=== PATIENT | male | born 1990 | race Caucasian/White ===

== ENCOUNTER 2016-07-02 22:46 | Emergency (ER) | payer OTHER ==
--- NOTE | 2016-07-02 23:39 | ED CLINICAL REPORT ---
Clinical Report - Physicians/Mid Levels [facility] [address] [place] [address] 07/02/2016 22:47 Patient: JIM DE LA GARZA Time Seen: 22:51. Arrived- By private vehicle. Historian- patient. HISTORY OF PRESENT ILLNESS Chief Complaint: DIZZINESS. Described as feeling off balance and light-headed. This started today and is now gone. No nausea, vomiting or tinnitus. REVIEW OF SYSTEMS No chills, fever, sweats, calf pain or chest pain. No cough, difficulty breathing, pedal edema, palpitations or abdominal pain. No constipation, diarrhea, nausea, vomiting or urinary problems. All systems otherwise negative, except as recorded above. PAST HISTORY Problems: Hypertension. Atrial Fibrillation. Additional Surgeries: Appendectomy. Sinus Surgery. Tonsillectomy. Medications: Fish Oil Oral. Losartan Potassium Oral. Allergies: Penicillin. SOCIAL HISTORY Never smoker. Regular alcohol use. No drug use. FAMILY HISTORY Denies family medical history. ADDITIONAL NOTES The nursing notes have been reviewed. PHYSICAL EXAM Vital Signs: 07/02/2016 22:57 BP: 161/95. HR: 90. RR: 12. O2 saturation: 100%. Temp: 98.7 F. Pain level now: 0/10. Have been reviewed. Appearance: Alert. Eyes: Pupils equal, round and reactive to light. No nystagmus. ENT: Normal ENT inspection. TM's normal. Moist mucous membranes. Pharynx normal. Neck: Normal inspection. Neck supple. No carotid bruit. CVS: Normal heart rate and rhythm. Heart sounds normal. Respiratory: No respiratory distress. Breath sounds normal. Abdomen: Soft and nontender. No organomegaly. Back: Normal inspection. Skin: Skin warm and dry. Normal skin color. Normal skin turgor. Extremities: Extremities exhibit normal ROM. Neuro: Alert. Mood/affect normal. Speech normal. Cranial nerves normal (as tested). No cerebellar findings. No motor deficit. No sensory deficit. LABS, X-RAYS, AND EKG EKG: No acute process. Rate: 83. Non-specific ST segment / T wave abnormalities. Prior EKG unavailable. The study has been independently viewed by me. PROGRESS AND PROCEDURES Course of Care: Patient is stable. Patient/family counseled. Old medical records ordered. Old records unavailable. Disposition: Discharged. Condition: stable. CLINICAL IMPRESSION Dizziness INSTRUCTIONS Drink plenty of fluids. Warnings: Further evaluation is necessary. GENERAL WARNINGS: Return or contact your physician immediately if your condition worsens or changes unexpectedly, if not improving as expected, or if other problems arise. Follow-up: Follow up with your doctor in seven days. Call for the next available appointment. Understanding of the discharge instructions verbalized by patient and parent. (Electronically signed by Jules Thayer MD 07/03/2016 0:15)
--- NOTE | 2016-07-02 23:39 | ED CLINICAL REPORT ---
Clinical Report - Physicians/Mid Levels [facility] [address] [place] [address] 07/02/2016 22:47 Patient: JIM DE LA GARZA Time Seen: 22:51. Arrived- By private vehicle. Historian- patient. HISTORY OF PRESENT ILLNESS Chief Complaint: DIZZINESS. Described as feeling off balance and light-headed. This started today and is now gone. No nausea, vomiting or tinnitus. REVIEW OF SYSTEMS No chills, fever, sweats, calf pain or chest pain. No cough, difficulty breathing, pedal edema, palpitations or abdominal pain. No constipation, diarrhea, nausea, vomiting or urinary problems. All systems otherwise negative, except as recorded above. PAST HISTORY Problems: Hypertension. Atrial Fibrillation. Additional Surgeries: Appendectomy. Sinus Surgery. Tonsillectomy. Medications: Fish Oil Oral. Losartan Potassium Oral. Allergies: Penicillin. SOCIAL HISTORY Never smoker. Regular alcohol use. No drug use. FAMILY HISTORY Denies family medical history. ADDITIONAL NOTES The nursing notes have been reviewed. PHYSICAL EXAM Vital Signs: 07/02/2016 22:57 BP: 161/95. HR: 90. RR: 12. O2 saturation: 100%. Temp: 98.7 F. Pain level now: 0/10. Have been reviewed. Appearance: Alert. Eyes: Pupils equal, round and reactive to light. No nystagmus. ENT: Normal ENT inspection. TM's normal. Moist mucous membranes. Pharynx normal. Neck: Normal inspection. Neck supple. No carotid bruit. CVS: Normal heart rate and rhythm. Heart sounds normal. Respiratory: No respiratory distress. Breath sounds normal. Abdomen: Soft and nontender. No organomegaly. Back: Normal inspection. Skin: Skin warm and dry. Normal skin color. Normal skin turgor. Extremities: Extremities exhibit normal ROM. Neuro: Alert. Mood/affect normal. Speech normal. Cranial nerves normal (as tested). No cerebellar findings. No motor deficit. No sensory deficit. LABS, X-RAYS, AND EKG EKG: No acute process. Rate: 83. Non-specific ST segment / T wave abnormalities. Prior EKG unavailable. The study has been independently viewed by me. PROGRESS AND PROCEDURES Course of Care: Patient is stable. Patient/family counseled. Old medical records ordered. Old records unavailable. Disposition: Discharged. Condition: stable. CLINICAL IMPRESSION Dizziness INSTRUCTIONS Drink plenty of fluids. Warnings: Further evaluation is necessary. GENERAL WARNINGS: Return or contact your physician immediately if your condition worsens or changes unexpectedly, if not improving as expected, or if other problems arise. Follow-up: Follow up with your doctor in seven days. Call for the next available appointment. Understanding of the discharge instructions verbalized by patient and parent. (Electronically signed by Jules Thayer MD 07/03/2016 0:15)
--- NOTE | 2016-07-02 23:39 | ED NURSING NOTES ---
Clinical Report - Nurses [facility] [place] [address] [address] 07/02/2016 22:47 Patient: JIM DE LA GARZA TRIAGE Triage time 2259 PM. Chief Complaint: DIZZINESS. --23:04 Graham Theodore R.N. 22:57 07/02/16. BP: 161/95. HR: 90. RR: 12. O2 saturation: 100%. Temp: 98.7 F (oral). Pain level now: 0/10. --23:04 Graham Theodore R.N. Acuity: LEVEL 3. Alert. No acute distress. FABRICE COMA SCORE: Fabrice Coma Scale: 15- eyes open spontaneously (4); best verbal response- oriented x 4 (5); best motor response- obeys commands (6). --23:04 Graham Theodore R.N. Weight: 90.7 kg stated. Height/Length: 72 inches Per Patient. BMI: 27.1. --23:05 Graham Theodore R.N. Medications Losartan Potassium Oral. --23:01 Graham Theodore R.N. Fish Oil Oral. --23:02 Graham Theodore R.N. Allergies Penicillin. --23:02 Graham Theodore R.N. History Arrived by private vehicle. Historian: patient. Accompanied by family. This started today. ( Patient presents to the ED with symptoms of dizziness and hypertension. Patient states that he was a history of atrial fibrillation and was cardioverted when he was 19 years old. 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 Patient states that he has a history of hypertension and is taking Losartan. Patient states that he has been under a significant amount of stress lately.). He has had a headache. 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 --23:04 Graham Theodore R.N. PAST MEDICAL HX: Immunizations: up-to-date. SOCIAL HX: Never smoker. Regular alcohol use. History of drug use. (no). FALL RISK ASSESSMENT: Fall risk assessment completed. No fall risk identified. NUTRITIONAL RISK ASSESSMENT: The nutritional risk assessment revealed no deficiencies. FUNCTIONAL ASSESSMENT: Functional assessment: no impairments noted. LEARNING NEEDS ASSESSMENT: The learning needs assessment revealed no barriers. SKIN INTEGRITY ASSESSMENT: Skin integrity risk assessment completed. No skin integrity risk identified. --23:05 Graham Theodore R.N. PROBLEMS: Hypertension. Atrial Fibrillation. --23:03 Graham Theodore R.N. ADDITIONAL SURGERIES: Appendectomy. Sinus Surgery. Tonsillectomy. --23:03 Graham Theodore R.N. Interventions ID band on patient. To treatment room. --23:04 Graham Theodore R.N. NURSING PROGRESS NOTES 23:12 07/02/2016 Site #1 started via IV in the right antecubital space with an 20g angiocath, with aseptic technique and good blood return; one attempt. Blood drawn: rainbow set. Labeled in the presence of the patient and sent to the lab. Saline lock flushed with 10 mL saline. --23:12 Loreto Ash R.N. Patient ID band checked for patient name and birthdate: patient confirmed urine collected with return of yellow-colored urine; sample sent to lab. Specimen labeled in the presence of the patient. --23:12 Loreto Ash R.N. EKG time: (2311). EKG was ordered, performed by a tech and shown to the ED physician. --23:13 Don Cantrell, ANGEL Tech1. DISPOSITION / DISCHARGE Condition at departure: improved. The goals identified in the patient's plan of care were met. No learning barriers present. Reviewed need for increased fluid intake. Activity restrictions (rest) reviewed. The patient was discharged home and accompanied by spouse. He left the Emergency Department ambulatory and via private vehicle. Spouse driving. FALL RISK ASSESSMENT: Fall risk assessment completed. No fall risk identified. --23:54 Graham Theodore R.N. 23:54 07/02/16. BP: 143/90. HR: 83. RR: 16. O2 saturation: 100%. Temp: 98.2 F (oral). Pain level now: 0/10. --23:54 Graham Theodore R.N. Departure time: 2354 PM. --23:55 Graham Theodore R.N. Locked/Released at 07/02/2016 23:55 by Graham Theodore R.N.
--- NOTE | 2016-07-02 23:39 | ED ORDER SUMMARY ---
..... Patient: JIM DE LA GARZA OrderSheet [facility] VisitID: [id number] [address] [place] [address] 25y, M Registration Date/Time: 07/02/2016 ORDER SHEET Weight: 90.7 kg (stated) Allergies: Penicillin GENERAL ORDERS: EKG - ER Stat (23:04 07/02/2016 Celina KAUR) (23:12 IJurca ER Tech1) MEDICATION ORDERS: IV FLUIDS: ORDER SHEET NOTES: [Electronically signed by Graham Theodore R.N. (23:55 07/02/2016)] [Electronically signed by Jules Thayer MD (00:15 07/03/2016)] [Electronically locked/signed by Graham Theodore R.N. (23:55 07/02/2016)]
--- NOTE | 2016-07-02 23:39 | ED NURSING NOTES ---
Clinical Report - Nurses [facility] [place] [address] 07/02/2016 22:47 Patient: JIM DE LA GARZA TRIAGE Triage time 2259 PM. Chief Complaint: DIZZINESS. --23:04 Graham Theodore R.N. 22:57 07/02/16. BP: 161/95. HR: 90. RR: 12. O2 saturation: 100%. Temp: 98.7 F (oral). Pain level now: 0/10. --23:04 Graham Theodore R.N. Acuity: LEVEL 3. Alert. No acute distress. FABRICE COMA SCORE: Fabrice Coma Scale: 15- eyes open spontaneously (4); best verbal response- oriented x 4 (5); best motor response- obeys commands (6). --23:04 Graham Theodore R.N. Weight: 90.7 kg stated. Height/Length: 72 inches Per Patient. BMI: 27.1. --23:05 Graham Theodore R.N. Medications Losartan Potassium Oral. --23:01 Graham Theodore R.N. Fish Oil Oral. --23:02 Graham Theodore R.N. Allergies Penicillin. --23:02 Graham Theodore R.N. History Arrived by private vehicle. Historian: patient. Accompanied by family. This started today. ( Patient presents to the ED with symptoms of dizziness and hypertension. Patient states that he was a history of atrial fibrillation and was cardioverted when he was 19 years old. 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 Patient states that he has a history of hypertension and is taking Losartan. Patient states that he has been under a significant amount of stress lately.). He has had a headache. 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 --23:04 Graham Theodore R.N. PAST MEDICAL HX: Immunizations: up-to-date. SOCIAL HX: Never smoker. Regular alcohol use. History of drug use. (no). FALL RISK ASSESSMENT: Fall risk assessment completed. No fall risk identified. NUTRITIONAL RISK ASSESSMENT: The nutritional risk assessment revealed no deficiencies. FUNCTIONAL ASSESSMENT: Functional assessment: no impairments noted. LEARNING NEEDS ASSESSMENT: The learning needs assessment revealed no barriers. SKIN INTEGRITY ASSESSMENT: Skin integrity risk assessment completed. No skin integrity risk identified. --23:05 Graham Theodore R.N. PROBLEMS: Hypertension. Atrial Fibrillation. --23:03 Graham Theodore R.N. ADDITIONAL SURGERIES: Appendectomy. Sinus Surgery. Tonsillectomy. --23:03 Graham Theodore R.N. Interventions ID band on patient. To treatment room. --23:04 Graham Theodore R.N. NURSING PROGRESS NOTES 23:12 07/02/2016 Site #1 started via IV in the right antecubital space with an 20g angiocath, with aseptic technique and good blood return; one attempt. Blood drawn: rainbow set. Labeled in the presence of the patient and sent to the lab. Saline lock flushed with 10 mL saline. --23:12 Loreto Ash R.N. Patient ID band checked for patient name and birthdate: patient confirmed urine collected with return of yellow-colored urine; sample sent to lab. Specimen labeled in the presence of the patient. --23:12 Loreto Ash R.N. EKG time: (2311). EKG was ordered, performed by a tech and shown to the ED physician. --23:13 Don Cantrell, ANGEL Tech1. DISPOSITION / DISCHARGE Condition at departure: improved. The goals identified in the patient's plan of care were met. No learning barriers present. Reviewed need for increased fluid intake. Activity restrictions (rest) reviewed. The patient was discharged home and accompanied by spouse. He left the Emergency Department ambulatory and via private vehicle. Spouse driving. FALL RISK ASSESSMENT: Fall risk assessment completed. No fall risk identified. --23:54 Graham Theodore R.N. 23:54 07/02/16. BP: 143/90. HR: 83. RR: 16. O2 saturation: 100%. Temp: 98.2 F (oral). Pain level now: 0/10. --23:54 Graham Theodore R.N. Departure time: 2354 PM. --23:55 Graham Theodore R.N. Locked/Released at 07/02/2016 23:55 by Graham Theodore R.N.
--- NOTE | 2016-07-02 23:39 | ED ORDER SUMMARY ---
..... Patient: JIM DE LA GARZA OrderSheet [facility] VisitID: [id number] [address] [place] [place] [address] 25y, M Registration Date/Time: 07/02/2016 ORDER SHEET Weight: 90.7 kg (stated) Allergies: Penicillin GENERAL ORDERS: EKG - ER Stat (23:04 07/02/2016 Celina KAUR) (23:12 IJurca ER Tech1) MEDICATION ORDERS: IV FLUIDS: ORDER SHEET NOTES: [Electronically signed by Graham Theodore R.N. (23:55 07/02/2016)] [Electronically signed by Jules Thayer MD (00:15 07/03/2016)] [Electronically locked/signed by Graham Theodore R.N. (23:55 07/02/2016)]
--- NOTE | 2016-07-03 00:15 | ED MED RECONCILIATION SUMMARY ---
Patient: JIM DE LA GARZA Medication Reconciliation Report [facility] VisitID: [id number] [address] [place] [address] 25y, M Registration Date/Time: 07/02/2016 Weight: 90.7 kg Height/Length: 72 in. BMI: 27.1 ALLERGIES: Penicillin The patient's Home Medications are listed below: THE FOLLOWING MEDICATIONS NEED TO BE RECONCILED: Fish Oil Oral Losartan Potassium Oral The source(s) of the original Home Medication information: Not obtained. The following Medications were given to the patient in the Emergency Department: None. The following Medications were prescribed to the patient: None.
--- NOTE | 2016-07-03 00:15 | ED MAR SUMMARY ---
..... Medication Administration Record [facility] [address], [place] [id number] Patient: JIM DE LA GARZA Visit ID: [id number] 25y, M Weight: 90.7 kg Height/Length: 72 in BMI: 27.1 ALLERGIES: Penicillin
--- NOTE | 2016-07-03 00:15 | ED DISCHARGE INSTRUCTIONS ---
Patient: JIM DE LA GARZA General Instructions [facility] VisitID: [id number] [place] [address] 25y, M Registration Date/Time: 07/02/2016 Dizziness INSTRUCTIONS Drink plenty of fluids. Warnings: Further evaluation is necessary. GENERAL WARNINGS: Return or contact your physician immediately if your condition worsens or changes unexpectedly, if not improving as expected, or if other problems arise. Follow-up: Follow up with your doctor in seven days. Call for the next available appointment. Understanding of the discharge instructions verbalized by patient and parent. ADDITIONAL INFORMATION Dizziness [Uncertain Cause] Dizziness is a common symptom sometimes described as "lightheadedness" or feeling like you are going to faint. If it lasts for only a few seconds and is related to changes in position (such as getting up after lying or sitting for a long time), it is usually not a sign of anything serious. Dizziness that lasts for minutes to hours, or comes on for no apparent reason, may be a sign of a more serious problem (such as dehydration, a medicine reaction, disease of the heart or brain). Today's exam did not show an exact cause for your dizzy spell . Sometimes additional tests are required before a cause can be found. Therefore, it is important to follow up with your doctor if your symptoms continue. Home Care: 1) If a dizzy spell occurs and lasts more than a few seconds, lie down until it passes. If you are lying down, then you cannot hurt yourself by falling if you do faint. 2) Do not drive or operate dangerous equipment until the dizzy spells have stopped for at least 48 hours. 3) If dizzy spells occur with sudden standing, this may be a sign of mild dehydration. Drink extra fluids over the next few days. 4) If you recently started a new medicine or if you had the dose of a current medicine increased (especially blood pressure medicine), talk with the prescribing doctor about your symptoms. Dose adjustments may be needed. Follow Up with your doctor for further evaluation within the next seven days, if your symptoms continue. Get Prompt Medical Attention if any of the following occur: -- Worsening of your symptoms -- Fainting, headache or seizure -- Repeated vomiting -- Feeling like you or the room is spinning -- Chest, arm, neck, back or jaw pain -- Palpitations (the sense that your heart is fluttering or beating fast or hard) -- Shortness of breath -- Blood in vomit or stool (black or red color) -- Weakness of an arm or leg or one side of the face -- Difficulty with speech or vision You have been given the following additional information: Dizziness, Unk Cause (Electronically signed by Jules Thayer MD 07/03/2016 0:15)
--- NOTE | 2016-07-03 00:15 | ED MAR SUMMARY ---
..... Medication Administration Record [facility] [address], [place] [id number] Patient: JIM DE LA GARZA Visit ID: [id number] 25y, M Weight: 90.7 kg Height/Length: 72 in BMI: 27.1 ALLERGIES: Penicillin
--- NOTE | 2016-07-03 00:15 | ED MED RECONCILIATION SUMMARY ---
Patient: JIM DE LA GARZA Medication Reconciliation Report [facility] VisitID: [id number] [address] [place] [address] 25y, M Registration Date/Time: 07/02/2016 Weight: 90.7 kg Height/Length: 72 in. BMI: 27.1 ALLERGIES: Penicillin The patient's Home Medications are listed below: THE FOLLOWING MEDICATIONS NEED TO BE RECONCILED: Fish Oil Oral Losartan Potassium Oral The source(s) of the original Home Medication information: Not obtained. The following Medications were given to the patient in the Emergency Department: None. The following Medications were prescribed to the patient: None.
== END 2016-07-02 23:50 | disposition home or self-care (01) ==
LOC: ED SRH 22:46
DX: R42 Dizziness and giddiness (principal); I10 Essential (primary) hypertension; I48.91 Unspecified atrial fibrillation; Z88.0 Allergy status to penicillin

== ENCOUNTER 2016-08-26 23:47 | Emergency (ER) | payer OTHER ==
--- NOTE | 2016-08-27 03:07 | ED ORDER SUMMARY ---
..... Patient: JIM DE LA GARZA OrderSheet [facility] VisitID: [id number] [address] [place] [address] 25y, M Registration Date/Time: 08/26/2016 ORDER SHEET Weight: 86.1 kg (stated) Allergies: Penicillin GENERAL ORDERS: Chest 2V Urgent (00:50 08/27/2016 Celina KAUR) (Ack 0:52 AMcQuoid ER Tech1) (1:00 GUnesme) EKG - ER Stat (00:50 08/27/2016 Celina KAUR) (Ack 0:52 AMcQuoid ER Tech1) (1:21 AMcQuoid ER Tech1) CBC w Diff Urgent (:08/27/2016 Celina KAUR) (Ack 1:35 AMcQuoid ER Tech1) (1:46 TLewis R.N.) CMP Urgent (:08/27/2016 Celina KAUR) (Ack 1:35 AMcQuoid ER Tech1) (1:46 TLewis R.N.) Amylase Urgent (:08/27/2016 Celina KAUR) (Ack 1:35 AMcQuoid ER Tech1) (1:46 TLewis R.N.) Lipase Urgent (:08/27/2016 Celina KAUR) (Ack 1:35 AMcQuoid ER Tech1) (1:46 TLewis R.N.) TSH Urgent (:08/27/2016 Celina KAUR) (Ack 1:35 AMcQuoid ER Tech1) (1:46 TLewis R.N.) UA-Culture if indicated Urgent (:08/27/2016 Celina KAUR) (Ack 1:35 AMcQuoid ER Tech1) (1:36 TLewis R.N.) CT Head wo Cont Urgent (:08/27/2016 Celina KAUR) (Ack 1:41 AMcQuoid ER Tech1) (1:50 TLewis R.N.) MEDICATION ORDERS: IV FLUIDS: ORDER SHEET NOTES: [Electronically signed by Pedro Pablo Perez R.N. (03:28 08/27/2016)] [Electronically signed by Jules Thayer MD (09:29 08/27/2016)] [Electronically locked/signed by Pedro Pablo Perez R.N. (:08/27/2016)]
--- NOTE | 2016-08-27 03:07 | ED NURSING NOTES ---
Clinical Report - Nurses [facility] [address] [place] [address] 08/26/2016 23:48 Patient: JIM DE LA GARZA TRIAGE Triage time 23:56. Acuity: LEVEL 4. --00:05 Pedro Pablo Perez R.N. 23:55 08/26/16. BP: 149/81. HR: 76. RR: 15. O2 saturation: 100%. Temp: 98.7 F. Pain level now 0/10. --00:05 Pedro Pablo Perez R.N. Chief Complaint: (Sob in the am). --03:28 Pedro Pablo Perez R.N. Weight: 86.1 kg stated. Height/Length: 71 inches Per Patient. BMI: 26.5. --00:04 Pedro Pablo Perez R.N. Medications Losartan Potassium Oral. --00:01 Pedro Pablo Perez R.N. Medication/allergy information source: the patient. --00:05 Pedro Pablo Perez R.N. Allergies Penicillin. --00:01 Pedro Pablo Perez R.N. History Arrived by private vehicle. Historian: patient. Primary physician ([facility]). Onset. (2). ( for the past 2 days the pt wakes up feeling like he cant breath and wakes up with a headache. Pt does not feel sob at time time. pt denies any cough or congestion. Pt denies any pain. Pt feels like his head is full of pressure in the morning. Pt does follow up with cardio due to A-fib when he was 19. No problems since then.). Treatment E [employer]: None. PAST MEDICAL HX: Hypertension. SOCIAL HX: Never smoker. Occasional alcohol use; consumes beer occasionally. No drug use. --00:05 Pedro Pablo Perez R.N. PROBLEMS: Dizziness. Atrial Fibrillation. --00:03 Pedro Pablo Perez R.N. Interventions ID band on patient. To waiting room. --00:05 Pedro Pablo Perez R.N. PHYSICAL ASSESSMENT GENERAL / NEURO / PSYCH: Alert. Oriented X 4. Appears in no acute distress. HEENT: Pupils equal, round and reactive to light. Ears within normal limits. Nares within normal limits. Mouth within normal limits upon inspection. Pharynx within normal limits. Voice within normal limits. Mucous membranes are pink. RESPIRATORY: Respirations not labored. Breath sounds within normal limits. CVS: Normal sinus rhythm noted. Capillary refill less than 2 seconds. SKIN: Skin is warm and dry. Normal skin turgor. --00:05 Pedro Pablo Perez R.N. NURSING PROGRESS NOTES Patient gowned. Two patient identifiers checked. Call light placed in reach. Side rails up x 1. Bed placed in lowest position. Brakes of bed on. --00:05 Pedro Pablo Perez R.N. 01:14. EKG was performed by a tech and shown to the ED physician. --01:22 Hannah Miller, ER Tech1 01:36 08/27/16. BP: 145/85. HR: 77. RR: 15. O2 saturation: 98%. Pain level now 0/10. --01:37 Pedro Pablo Perez R.N. 01:38 08/27/16. BP: 145/85 (regular adult cuff) taken on the left arm, via an automated monitor, while lying. HR: 79 (regular and normal rate). RR: 15 (regular, unlabored and normal). O2 saturation: 100% on room air. Pain level now: 0/10. --01:39 Pedro Pablo Perez R.N. 01:39 08/27/16. BP: 159/91 (regular adult cuff) taken on the left arm, via an automated monitor, while sitting. HR: 76. RR: 15 (regular, unlabored and normal). O2 saturation: 100% on room air. --01:45 Pedro Pablo Perez R.N. 01:45 08/27/16. BP: 142/92 (regular adult cuff) taken on the left arm, via an automated monitor, while standing. HR: 72 (regular and normal rate). RR: 16 (regular, unlabored and normal). O2 saturation: 100% on room air. --01:46 Pedro Pablo Perez R.N. ( 0132: per request of ED DrJenny; EKG was repeated by a tech and shown to ED Physician). --01:56 Thea Salguero Patient ID band checked for patient name and birthdate: patient confirmed. Blood samples drawn from the right antecubital space with 23g butterfly by tech per protocol ; labeled in presence of the patient and sent to lab: jovany butcher. ( 0145). --01:58 Thea Salguero Patient walked back to ED from CT with tech. (02:10). --02:10 Pedro Pablo Perez R.N. Patient walked to CT with tech. (01:50). --02:11 Pedro Pablo Perez R.N. DISPOSITION / DISCHARGE Departure time: 03:25. Condition at departure: improved. ( No sob or chest pain. Pt was told to follow up with PCP.). No learning barriers present. Reviewed medication(s) side effects, precautions, dosing and course information. Prescription(s) given to the patient (aspirin 81mg). Patient verbalized understanding. Written instructions provided in Dominican. The patient was discharged by the physician. He was discharged home and accompanied by spouse. He left the Emergency Department ambulatory and via private vehicle. Spouse driving. --03:28 Pedro Pablo Perez R.N. 03:24 08/27/16. BP: 143/85. HR: 74. RR: 13. O2 saturation: 100%. Pain level now 0/10. --03:28 Pedro Pablo Perez R.N. Locked/Released at 08/27/2016 3:28 by Pedro Pablo Perez R.N.
--- NOTE | 2016-08-27 03:07 | ED CLINICAL REPORT ---
Clinical Report - Physicians/Mid Levels [facility] [address] [place] [address] 08/26/2016 23:48 Patient: JIM DE LA GARZA Time Seen: 00:48. Arrived- By private vehicle. Historian- patient. HISTORY OF PRESENT ILLNESS Chief Complaint: DIZZINESS. Described as a sense of rotation and movement and feeling off balance, light-headed and faint. This started about 2 days ago and is still present and now worse. It was gradual in onset and has been constant. The patient has had nausea. No vomiting or hearing loss. He has had mild right-sided tinnitus and mild left-sided tinnitus. Similar symptoms previously: Several times. Recent medical care: The patient was seen recently at this facility. Seen for similar symptoms. Diagnosis: (dizziness). REVIEW OF SYSTEMS The patient has had chills. No fever, sweats, calf pain, chest pain or cough. No difficulty breathing, pedal edema, abdominal pain, constipation or diarrhea. No nausea, vomiting or urinary problems. The patient has had palpitations (chronically). It has been similar to previous symptoms. All systems otherwise negative, except as recorded above. PAST HISTORY ( PCP - Conor). Problems: Dizziness. Hypertension. Atrial Fibrillation. Additional Surgeries: Appendectomy. Sinus Surgery. Tonsillectomy. Medications: Losartan Potassium Oral. Allergies: Penicillin. SOCIAL HISTORY Never smoker. Occasional alcohol use. No drug use. Is a local resident. FAMILY HISTORY Hypertension in first-degree relative (father); heart disease in first-degree relative (father); cancer in grandparent. multiple family members with atrial fibrillation. ADDITIONAL NOTES The nursing notes have been reviewed. PHYSICAL EXAM Vital Signs: 08/26/2016 23:55 BP: 149/81. HR: 76. RR: 15. O2 saturation: 100%. Temp: 98.7 F. Have been reviewed. Appearance: Alert. No acute distress. Eyes: Pupils equal, round and reactive to light. No nystagmus. ENT: Normal ENT inspection. Pharynx normal. Neck: Normal inspection. Neck supple. No meningeal signs or carotid bruit. CVS: Normal heart rate and rhythm. Heart sounds normal. Respiratory: No respiratory distress. Breath sounds normal. Abdomen: Soft and nontender. No organomegaly. Back: Normal inspection. Skin: Skin warm and dry. Normal skin color. No rash. Normal skin turgor. Extremities: Extremities exhibit normal ROM. No calf tenderness. No lower extremity edema. Neuro: Alert. Mood/affect normal. Speech normal. Cranial nerves normal (as tested). No cerebellar findings. No motor deficit. No sensory deficit. LABS, X-RAYS, AND EKG EKG: Rate: 76. Non-specific ST segment / T wave abnormalities. EKG unchanged when compared with prior EKG. (02 Jul 2016). The study has been independently viewed by me. CT Head: Normal study. The study was interpreted by the radiologist and contemporaneously by me. Laboratory Tests: UA-Culture if indicated: (NASIR: 08/27/2016 01:45) ( MsgRcvd 08/27/2016 02:08) Final results Test Result Flag Units (Reference) URINE COLOR YELLOW URINE APPEARANCE CLEAR URINE GLUCOSE NEGATIVE (NEGATIVE) URINE BILIRUBIN NEGATIVE (NEGATIVE) URINE KETONE NEGATIVE (NEGATIVE) URINE SPECIFIC GRAVITY <= 1.005 L (1.010-1.030) URINE PH 6.0 (5.0-8.0) URINE PROTEIN NEGATIVE (NEGATIVE) URINE UROBILINOGEN 0.2 EU/dL (0.2-1.0) URINE NITRITE NEGATIVE (NEGATIVE) URINE BLOOD NEGATIVE (NEGATIVE) URINE LEUK ESTERASE NEGATIVE (NEGATIVE) URINE RBC RARE rbc/hpf (0-1) URINE WBC NONE SEEN wbc/hpf (0-1) URINE EPITHELIAL CELLS NONE SEEN EPI/hpf (0-5) URINE BACTERIA NONE SEEN (NONE SEEN) URINE COMMENT CULT NOT INDICATED URINE CULTURES ARE SET-UP BASED ON THE FOLLOWING CRITERIA:POSITIVE NITRITEPOSITIVE LEUKOCYTE ESTERASEGREATER THAN 10 WHITE BLOOD CELLSMODERATE (2+) OR GREATER BACTERIA CBC w Diff: (NASIR: 08/27/2016 01:45) ( MsgRcvd 08/27/2016 02:00) Final results Test Result Flag Units (Reference) WHITE BLOOD COUNT 7.1 K/uL (4.5-11.5) RED BLOOD COUNT 6.14 *H M/uL (4.50-5.90) HEMOGLOBIN 18.3 H gm/dL (13.5-17.5) HEMATOCRIT 51.9 % (41.0-53.0) MEAN CELL VOLUME 85 fL (80-100) MEAN CORPUSCULAR HGB 30 pg (26-34) MEAN CORPUSCULAR HGB CONC 35 g/dL (31-37) RED CELL DISTRIBUTION WIDTH 13.4 % (11.6-14.8) PLATELET COUNT 227 K/uL (150-400) NEUTROPHIL % 67.3 % (50-75) LYMPH % 24.5 L % (25-40) MONO % 6.6 % (3-14) EOSINOPHIL % 1.3 % (0-4) BASOPHIL % 0.3 % (0-2) . PROGRESS AND PROCEDURES Course of Care: Patient is stable. Patient/family counseled. Old medical records reviewed. Disposition: Discharged. Condition: stable. CLINICAL IMPRESSION Dizziness Mild polycythemia (possible polycythemia rubra vera). INSTRUCTIONS Drink plenty of fluids. Warnings: Further evaluation is necessary. GENERAL WARNINGS: Return or contact your physician immediately if your condition worsens or changes unexpectedly, if not improving as expected, or if other problems arise. Your Current Medications: CONTINUE TAKING THE FOLLOWING MEDICATIONS: Losartan Potassium Oral. OTC Medications: Aspirin 81 mg (available over the counter): take 1 orally every 24 hours. Dispense thirty (30). No refills. Follow-up: Follow up with your doctor in five days. Call for the next available appointment. Understanding of the discharge instructions verbalized by patient. (Electronically signed by Jules Thayer MD 08/27/2016 9:29)
--- NOTE | 2016-08-27 03:07 | ED ORDER SUMMARY ---
..... Patient: JIM DE LA GARZA OrderSheet [facility] VisitID: [id number] [address] [place] [address] 25y, M Registration Date/Time: 08/26/2016 ORDER SHEET Weight: 86.1 kg (stated) Allergies: Penicillin GENERAL ORDERS: Chest 2V Urgent (00:50 08/27/2016 Celina KAUR) (Ack 0:52 AMcQuoid ER Tech1) (1:00 GUnesme) EKG - ER Stat (00:50 08/27/2016 Celina KAUR) (Ack 0:52 AMcQuoid ER Tech1) (1:21 AMcQuoid ER Tech1) CBC w Diff Urgent (:08/27/2016 Celina KAUR) (Ack 1:35 AMcQuoid ER Tech1) (1:46 TLewis R.N.) CMP Urgent (:08/27/2016 Celina KAUR) (Ack 1:35 AMcQuoid ER Tech1) (1:46 TLewis R.N.) Amylase Urgent (:08/27/2016 Celina KAUR) (Ack 1:35 AMcQuoid ER Tech1) (1:46 TLewis R.N.) Lipase Urgent (:08/27/2016 Celina KAUR) (Ack 1:35 AMcQuoid ER Tech1) (1:46 TLewis R.N.) TSH Urgent (:08/27/2016 Celina KAUR) (Ack 1:35 AMcQuoid ER Tech1) (1:46 TLewis R.N.) UA-Culture if indicated Urgent (:08/27/2016 Celina KAUR) (Ack 1:35 AMcQuoid ER Tech1) (1:36 TLewis R.N.) CT Head wo Cont Urgent (:08/27/2016 Celina KAUR) (Ack 1:41 AMcQuoid ER Tech1) (1:50 TLewis R.N.) MEDICATION ORDERS: IV FLUIDS: ORDER SHEET NOTES: [Electronically signed by Pedro Pablo ePrez R.N. (03:28 08/27/2016)] [Electronically signed by Jules Thayer MD (09:29 08/27/2016)] [Electronically locked/signed by Pedro Pablo Perez R.N. (:08/27/2016)]
--- NOTE | 2016-08-27 06:59 | DIAGNOSTIC IMAGING REPORT ---
PROCEDURE: CT HEAD WITHOUT CONTRAST INDICATION: DIZZINESS, initial encounter. TECHNIQUE: Noncontrast axial images with sagittal and coronal reformations. COMPARISON: None. FINDINGS: Sulci, ventricular system, and brain parenchyma are normal. No evidence of acute intracranial process. Mild right maxillary sinus disease. Mastoids are clear. IMPRESSION: 1. Negative non-enhanced head CT. 2. Preliminary results submitted by Dr. Mills, [facility] radiology.
--- NOTE | 2016-08-27 08:27 | DIAGNOSTIC IMAGING REPORT ---
PROCEDURE: XR CHEST 2 VIEW INDICATION: SHORTNESS OF BREATH TECHNIQUE: PA and lateral view. COMPARISON: None. FINDINGS: Lungs are clear. Cardiovascular structures are normal. Old right clavicle fracture. IMPRESSION: 1. Negative chest.
--- NOTE | 2016-08-27 09:29 | ED DISCHARGE INSTRUCTIONS ---
Patient: JIM DE LA GARZA General Instructions [facility] VisitID: [id number] [address] [place] [address] 25y, M Registration Date/Time: 08/26/2016 Dizziness Mild polycythemia. INSTRUCTIONS Drink plenty of fluids. Warnings: Further evaluation is necessary. GENERAL WARNINGS: Return or contact your physician immediately if your condition worsens or changes unexpectedly, if not improving as expected, or if other problems arise. Your Current Medications: CONTINUE TAKING THE FOLLOWING MEDICATIONS: Losartan Potassium Oral. OTC Medications: Aspirin 81 mg (available over the counter): take 1 orally every 24 hours. Dispense thirty (30). No refills. Follow-up: Follow up with your doctor in five days. Call for the next available appointment. Understanding of the discharge instructions verbalized by patient. ADDITIONAL INFORMATION Dizziness [Uncertain Cause] Dizziness is a common symptom sometimes described as "lightheadedness" or feeling like you are going to faint. If it lasts for only a few seconds and is related to changes in position (such as getting up after lying or sitting for a long time), it is usually not a sign of anything serious. Dizziness that lasts for minutes to hours, or comes on for no apparent reason, may be a sign of a more serious problem (such as dehydration, a medicine reaction, disease of the heart or brain). Today's exam did not show an exact cause for your dizzy spell . Sometimes additional tests are required before a cause can be found. Therefore, it is important to follow up with your doctor if your symptoms continue. Home Care: 1) If a dizzy spell occurs and lasts more than a few seconds, lie down until it passes. If you are lying down, then you cannot hurt yourself by falling if you do faint. 2) Do not drive or operate dangerous equipment until the dizzy spells have stopped for at least 48 hours. 3) If dizzy spells occur with sudden standing, this may be a sign of mild dehydration. Drink extra fluids over the next few days. 4) If you recently started a new medicine or if you had the dose of a current medicine increased (especially blood pressure medicine), talk with the prescribing doctor about your symptoms. Dose adjustments may be needed. Follow Up with your doctor for further evaluation within the next seven days, if your symptoms continue. Get Prompt Medical Attention if any of the following occur: -- Worsening of your symptoms -- Fainting, headache or seizure -- Repeated vomiting -- Feeling like you or the room is spinning -- Chest, arm, neck, back or jaw pain -- Palpitations (the sense that your heart is fluttering or beating fast or hard) -- Shortness of breath -- Blood in vomit or stool (black or red color) -- Weakness of an arm or leg or one side of the face -- Difficulty with speech or vision Aspirin Oral tablet What is this medicine? ASPIRIN ( pir in) is a pain reliever. It is used to treat mild pain and fever. This medicine is also used as directed by a doctor to prevent and to treat heart attacks, to prevent strokes, and to treat arthritis or inflammation. How should I use this medicine? Take this medicine by mouth with a glass of water. Follow the directions on the package or prescription label. You can take this medicine with or without food. If it upsets your stomach, take it with food. Do not take your medicine more often than directed. Talk to your bottle selector regarding the use of this medicine in children. While this drug may be prescribed for children as young as 12 years of age for selected conditions, precautions do apply. Children and teenagers should not use this medicine to treat chicken pox or flu symptoms unless directed by a doctor. Patients over 65 years old may have a stronger reaction and need a smaller dose. What side effects may I notice from receiving this medicine? Side effects that you should report to your doctor or health healthcare economics manager as soon as possible: allergic reactions like skin rash, itching or hives, swelling of the face, lips, or tongue breathing problems changes in hearing, ringing in the ears confusion general ill feeling or flu-like symptoms pain on swallowing redness, blistering, peeling or loosening of the skin, including inside the mouth or nose signs and symptoms of bleeding such as bloody or black, tarry stools; red or dark-brown urine; spitting up blood or brown material that looks like coffee grounds; red spots on the skin; unusual bruising or bleeding from the eye, gums, or nose trouble passing urine or change in the amount of urine unusually weak or tired yellowing of the eyes or skin Side effects that usually do not require medical attention (report to your doctor or health healthcare economics manager if they continue or are bothersome): diarrhea or constipation nausea, vomiting stomach gas, heartburn What may interact with this medicine? Do not take this medicine with any of the following medications: cidofovir ketorolac probenecid This medicine may also interact with the following medications: alcohol alendronate bismuth subsalicylate flavocoxid herbal supplements like feverfew, garlic, justo, ginkgo biloba, horse chestnut medicines for diabetes or glaucoma like acetazolamide, methazolamide medicines for gout medicines that treat or prevent blood clots like enoxaparin, heparin, ticlopidine, warfarin other aspirin and aspirin-like medicines NSAIDs, medicines for pain and inflammation, like ibuprofen or naproxen pemetrexed sulfinpyrazone varicella live vaccine What if I miss a dose? If you are taking this medicine on a regular schedule and miss a dose, take it as soon as you can. If it is almost time for your next dose, take only that dose. Do not take double or extra doses. Where should I keep my medicine? Keep out of the reach of children. Store at room temperature between 15 and 30 degrees C (59 and 86 degrees F). Protect from heat and moisture. Do not use this medicine if it has a strong vinegar smell. Throw away any unused medicine after the expiration date. What should I tell my health care provider before I take this medicine? They need to know if you have any of these conditions: anemia asthma bleeding problems child with chickenpox, the flu, or other viral infection diabetes gout if you frequently drink alcohol containing drinks kidney disease liver disease low level of vitamin K lupus smoke tobacco stomach ulcers or other problems an unusual or allergic reaction to aspirin, tartrazine dye, other medicines, dyes, or preservatives or trying to get breast-feeding What should I watch for while using this medicine? If you are treating yourself for pain, tell your doctor or health healthcare economics manager if the pain lasts more than 10 days, if it gets worse, or if there is a new or different kind of pain. Tell your doctor if you see redness or swelling. Also, check with your doctor if you have a fever that lasts for more than 3 days. Only take this medicine to prevent heart attacks or blood clotting if prescribed by your doctor or health healthcare economics manager. Do not take aspirin or aspirin-like medicines with this medicine. Too much aspirin can be dangerous. Always read the labels carefully. This medicine can irritate your stomach or cause bleeding problems. Do not smoke cigarettes or drink alcohol while taking this medicine. Do not lie down for 30 minutes after taking this medicine to prevent irritation to your throat. If you are scheduled for any medical or dental procedure, tell your healthcare provider that you are taking this medicine. You may need to stop taking this medicine before the procedure. You have been given the following additional information: Dizziness, Unk Cause Aspirin Oral tablet (Electronically signed by Jules Thayer MD 08/27/2016 9:29)
--- NOTE | 2016-08-27 09:29 | ED MED RECONCILIATION SUMMARY ---
Patient: JIM DE LA GARZA Medication Reconciliation Report [facility] VisitID: [id number] [address] [place] [address] 25y, M Registration Date/Time: 08/26/2016 Weight: 86.1 kg Height/Length: 71 in. BMI: 26.5 ALLERGIES: Penicillin The patient's Home Medications are listed below: CONTINUE TAKING THE FOLLOWING MEDICATIONS: Losartan Potassium Oral The source(s) of the original Home Medication information: patient The following Medications were given to the patient in the Emergency Department: None. The following Medications were prescribed to the patient: Aspirin 81 mg (available over the counter): take 1 orally every 24 hours. Dispense thirty (30). No refills. -- Jules Thayer MD
--- NOTE | 2016-08-27 09:29 | ED MAR SUMMARY ---
..... Medication Administration Record [facility] [address], [place] [id number] Patient: JIM DE LA GARZA Visit ID: [id number] 25y, M Weight: 86.1 kg Height/Length: 71 in BMI: 26.5 ALLERGIES: Penicillin
--- NOTE | 2016-08-27 09:29 | ED MED RECONCILIATION SUMMARY ---
Patient: JIM DE LA GARZA Medication Reconciliation Report [facility] VisitID: [id number] [address] [place] [address] 25y, M Registration Date/Time: 08/26/2016 Weight: 86.1 kg Height/Length: 71 in. BMI: 26.5 ALLERGIES: Penicillin The patient's Home Medications are listed below: CONTINUE TAKING THE FOLLOWING MEDICATIONS: Losartan Potassium Oral The source(s) of the original Home Medication information: patient The following Medications were given to the patient in the Emergency Department: None. The following Medications were prescribed to the patient: Aspirin 81 mg (available over the counter): take 1 orally every 24 hours. Dispense thirty (30). No refills. -- Jules Thayer MD
--- NOTE | 2016-08-27 09:29 | ED MAR SUMMARY ---
..... Medication Administration Record [facility] [address], [place] [id number] Patient: JIM DE LA GARZA Visit ID: [id number] 25y, M Weight: 86.1 kg Height/Length: 71 in BMI: 26.5 ALLERGIES: Penicillin
--- NOTE | 2016-08-27 09:29 | ED DISCHARGE INSTRUCTIONS ---
Patient: JIM DE LA GARZA General Instructions [facility] VisitID: [id number] [address] [place] [address] 25y, M Registration Date/Time: 08/26/2016 Dizziness Mild polycythemia. INSTRUCTIONS Drink plenty of fluids. Warnings: Further evaluation is necessary. GENERAL WARNINGS: Return or contact your physician immediately if your condition worsens or changes unexpectedly, if not improving as expected, or if other problems arise. Your Current Medications: CONTINUE TAKING THE FOLLOWING MEDICATIONS: Losartan Potassium Oral. OTC Medications: Aspirin 81 mg (available over the counter): take 1 orally every 24 hours. Dispense thirty (30). No refills. Follow-up: Follow up with your doctor in five days. Call for the next available appointment. Understanding of the discharge instructions verbalized by patient. ADDITIONAL INFORMATION Dizziness [Uncertain Cause] Dizziness is a common symptom sometimes described as "lightheadedness" or feeling like you are going to faint. If it lasts for only a few seconds and is related to changes in position (such as getting up after lying or sitting for a long time), it is usually not a sign of anything serious. Dizziness that lasts for minutes to hours, or comes on for no apparent reason, may be a sign of a more serious problem (such as dehydration, a medicine reaction, disease of the heart or brain). Today's exam did not show an exact cause for your dizzy spell . Sometimes additional tests are required before a cause can be found. Therefore, it is important to follow up with your doctor if your symptoms continue. Home Care: 1) If a dizzy spell occurs and lasts more than a few seconds, lie down until it passes. If you are lying down, then you cannot hurt yourself by falling if you do faint. 2) Do not drive or operate dangerous equipment until the dizzy spells have stopped for at least 48 hours. 3) If dizzy spells occur with sudden standing, this may be a sign of mild dehydration. Drink extra fluids over the next few days. 4) If you recently started a new medicine or if you had the dose of a current medicine increased (especially blood pressure medicine), talk with the prescribing doctor about your symptoms. Dose adjustments may be needed. Follow Up with your doctor for further evaluation within the next seven days, if your symptoms continue. Get Prompt Medical Attention if any of the following occur: -- Worsening of your symptoms -- Fainting, headache or seizure -- Repeated vomiting -- Feeling like you or the room is spinning -- Chest, arm, neck, back or jaw pain -- Palpitations (the sense that your heart is fluttering or beating fast or hard) -- Shortness of breath -- Blood in vomit or stool (black or red color) -- Weakness of an arm or leg or one side of the face -- Difficulty with speech or vision Aspirin Oral tablet What is this medicine? ASPIRIN ( pir in) is a pain reliever. It is used to treat mild pain and fever. This medicine is also used as directed by a doctor to prevent and to treat heart attacks, to prevent strokes, and to treat arthritis or inflammation. How should I use this medicine? Take this medicine by mouth with a glass of water. Follow the directions on the package or prescription label. You can take this medicine with or without food. If it upsets your stomach, take it with food. Do not take your medicine more often than directed. Talk to your dynamite reclaimer regarding the use of this medicine in children. While this drug may be prescribed for children as young as 12 years of age for selected conditions, precautions do apply. Children and teenagers should not use this medicine to treat chicken pox or flu symptoms unless directed by a doctor. Patients over 65 years old may have a stronger reaction and need a smaller dose. What side effects may I notice from receiving this medicine? Side effects that you should report to your doctor or health manager medicare marketing as soon as possible: allergic reactions like skin rash, itching or hives, swelling of the face, lips, or tongue breathing problems changes in hearing, ringing in the ears confusion general ill feeling or flu-like symptoms pain on swallowing redness, blistering, peeling or loosening of the skin, including inside the mouth or nose signs and symptoms of bleeding such as bloody or black, tarry stools; red or dark-brown urine; spitting up blood or brown material that looks like coffee grounds; red spots on the skin; unusual bruising or bleeding from the eye, gums, or nose trouble passing urine or change in the amount of urine unusually weak or tired yellowing of the eyes or skin Side effects that usually do not require medical attention (report to your doctor or health manager medicare marketing if they continue or are bothersome): diarrhea or constipation nausea, vomiting stomach gas, heartburn What may interact with this medicine? Do not take this medicine with any of the following medications: cidofovir ketorolac probenecid This medicine may also interact with the following medications: alcohol alendronate bismuth subsalicylate flavocoxid herbal supplements like feverfew, garlic, justo, ginkgo biloba, horse chestnut medicines for diabetes or glaucoma like acetazolamide, methazolamide medicines for gout medicines that treat or prevent blood clots like enoxaparin, heparin, ticlopidine, warfarin other aspirin and aspirin-like medicines NSAIDs, medicines for pain and inflammation, like ibuprofen or naproxen pemetrexed sulfinpyrazone varicella live vaccine What if I miss a dose? If you are taking this medicine on a regular schedule and miss a dose, take it as soon as you can. If it is almost time for your next dose, take only that dose. Do not take double or extra doses. Where should I keep my medicine? Keep out of the reach of children. Store at room temperature between 15 and 30 degrees C (59 and 86 degrees F). Protect from heat and moisture. Do not use this medicine if it has a strong vinegar smell. Throw away any unused medicine after the expiration date. What should I tell my health care provider before I take this medicine? They need to know if you have any of these conditions: anemia asthma bleeding problems child with chickenpox, the flu, or other viral infection diabetes gout if you frequently drink alcohol containing drinks kidney disease liver disease low level of vitamin K lupus smoke tobacco stomach ulcers or other problems an unusual or allergic reaction to aspirin, tartrazine dye, other medicines, dyes, or preservatives or trying to get breast-feeding What should I watch for while using this medicine? If you are treating yourself for pain, tell your doctor or health manager medicare marketing if the pain lasts more than 10 days, if it gets worse, or if there is a new or different kind of pain. Tell your doctor if you see redness or swelling. Also, check with your doctor if you have a fever that lasts for more than 3 days. Only take this medicine to prevent heart attacks or blood clotting if prescribed by your doctor or health manager medicare marketing. Do not take aspirin or aspirin-like medicines with this medicine. Too much aspirin can be dangerous. Always read the labels carefully. This medicine can irritate your stomach or cause bleeding problems. Do not smoke cigarettes or drink alcohol while taking this medicine. Do not lie down for 30 minutes after taking this medicine to prevent irritation to your throat. If you are scheduled for any medical or dental procedure, tell your healthcare provider that you are taking this medicine. You may need to stop taking this medicine before the procedure. You have been given the following additional information: Dizziness, Unk Cause Aspirin Oral tablet (Electronically signed by Jules Thayer MD 08/27/2016 9:29)
== END 2016-08-27 03:30 | disposition home or self-care (01) ==
LOC: ED SRH 23:47
DX: R42 Dizziness and giddiness (principal); D75.1 Secondary polycythemia; I10 Essential (primary) hypertension; I48.91 Unspecified atrial fibrillation; Z88.0 Allergy status to penicillin
CPT/HCPCS: 90004; 90100; 92235; 92530; 93140; 95059

== ENCOUNTER 2016-08-28 17:13 | Emergency (ER) | payer OTHER ==
--- NOTE | 2016-08-28 18:44 | ED CLINICAL REPORT ---
Clinical Report - Physicians/Mid Levels [facility] [address] [place] [address] 08/28/2016 17:14 Patient: JIM DE LA GARZA Time Seen: 17:54 Mar 2016. Arrived- By private vehicle. Historian- patient. HISTORY OF PRESENT ILLNESS Chief Complaint: transient paresthesias to R. Side. This started just prior to arrival and is still present. (Patient reports paresthesia sensations to his hand feet, upper extremity over the last 2 years, that now have subsided. Recently seen in the emergency department, as well as his primary care doctor for similar episodes that about o'clock about 3-4 weeks. 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 REVIEW OF SYSTEMS No fever, cough, difficulty breathing, nausea or chills. No difficulty with urination or headache. No difficulty with ambulation. All systems otherwise negative, except as recorded above. PAST HISTORY Fam hx mother: PV grandparents: [place], afib,htn. Problems: Polycythemia. Dizziness. Hypertension. Atrial Fibrillation. Additional Surgeries: Appendectomy. Sinus Surgery. Tonsillectomy. Medications: Losartan Potassium Oral. Allergies: Penicillin. SOCIAL HISTORY Never smoker. Alcohol use. ADDITIONAL NOTES The nursing notes have been reviewed. PHYSICAL EXAM Vital Signs: 08/28/2016 17:23 BP: 153/83. HR: 88. RR: 16. O2 saturation: 100%. Temp: 98.6 F. Appearance: Alert. Eyes: Eyes normal inspection. ENT: Ears normal. Nose normal. Neck: Normal inspection. Neck supple. No carotid bruit or lymphadenopathy. CVS: Normal heart rate and rhythm. Heart sounds normal. Rhythm normal. No extra heart sounds. Respiratory: No respiratory distress. Breath sounds normal. No decreased air movement. Abdomen: No visible injury. Soft. Bowel sounds normal. No abdominal tenderness, rebound tenderness, distention or organomegaly. Neuro: Oriented X 3. No motor deficit. LABS, X-RAYS, AND EKG EKG: EKG time: (1753). No acute process. No acute ischemia. Normal EKG. Rate: 77. Normal P waves. Normal NATALIE. Normal QRS complex. Normal axis. Normal ST and T waves and QT. The study has been interpreted contemporaneously. The EKG appears to be a good tracing. Laboratory Tests: CBC w Diff: (NASIR: 08/28/2016 17:45) ( [facility] 08/28/2016 18:21) Final results Test Result Flag Units (Reference) WHITE BLOOD COUNT 7.3 K/uL (4.5-11.5) RED BLOOD COUNT 5.94 H M/uL (4.50-5.90) HEMOGLOBIN 17.5 gm/dL (13.5-17.5) HEMATOCRIT 50.3 % (41.0-53.0) MEAN CELL VOLUME 85 fL (80-100) MEAN CORPUSCULAR HGB 30 pg (26-34) MEAN CORPUSCULAR HGB CONC 35 g/dL (31-37) RED CELL DISTRIBUTION WIDTH 13.4 % (11.6-14.8) PLATELET COUNT 239 K/uL (150-400) NEUTROPHIL % 73.2 % (50-75) LYMPH % 20.3 L % (25-40) MONO % 5.2 % (3-14) EOSINOPHIL % 1.0 % (0-4) BASOPHIL % 0.3 % (0-2) PT with INR: (NASIR: 08/28/2016 17:45) ( [facility] 08/28/2016 18:00) Final results Test Result Flag Units (Reference) INR 1.0 (0.8-1.2) Low Intensity Therapy: INR 1.5-2.0 PT range 18.5-23.1Mod.Intensity Therapy: INR 2.0-3.0 PT range 23.1-31.5High Intensity Therapy: INR 2.5-3.5 PT range 27.4-35.5High Intensity Therapy 2: INR 3.0-4.0 PT range 31.5-39.3 APTT 27 SECONDS (24-34) CMP: (NASIR: 08/28/2016 17:39) ( [facility] 08/28/2016 18:47) Final results Test Result Flag Units (Reference) GLUCOSE 114 H mg/dL (70-110) BUN 14 mg/dL (7-18) CREATININE 1.0 mg/dL (0.6-1.3) Estimated GFR >60 mL/min Estimated GFR- >60 mL/min Note: Persistent reduction over 3 months in eGFR<60 mL/min/1.73 m2 defines CKD. Patients with eGFR values>=60 mL/min/1.73 m2 may also have CKD if evidence ofpersistent proteinuria. Additional information may be foundat www.kidney.org. SODIUM 139 mmol/L (136-145) POTASSIUM 3.6 mmol/L (3.5-5.1) CHLORIDE 103 mmol/L (98-107) CARBON DIOXIDE 28 mmol/L (21-32) CALCIUM 8.9 mg/dL (8.5-10.1) TOTAL PROTEIN 7.5 g/dL (6.4-8.2) ALBUMIN 4.4 g/dL (3.3-5.0) BILIRUBIN, TOTAL 3.1 H mg/dL (0.0-1.0) ALKALINE PHOSPHATASE 65 U/L (46-116) AST (SGOT) 15 U/L (15-37) ALT (SGPT) 31 U/L (12-78) BILIRUBIN, DIRECT 0.4 H mg/dL (0-0.3) . PROGRESS AND PROCEDURES Course of Care: Elevated bilirubin as noted previously, has stayed the same, patient has no abdominal pain. He would largely normalized labs, syrup for the bilirubin, which appears to be in direct, he has no abdominal pain, recent illness beyond a sinusitis type of illness. LFTs are otherwise unremarkable. Patient to follow up outpatient. At this time EKG unremarkable as well. PERC/ WELLS neg. 08/28/2016 18:29 BP: 138/75. HR: 75. RR: 16. O2 saturation: 99%. Patient is stable. Symptoms better. Patient/family counseled. Differential Diagnosis: I considered cochlear disease, labyrinthitis, perilymph fistula, acoustic schwannoma, brainstem TIA, brainstem CVA, multiple sclerosis and drug-related cause of central vertigo as a possible cause of dizziness in this patient. This is a partial list of diagnoses considered. I considered muscle strain, pleurisy, epidemic pleurodynia, intercostal neuritis, intermediate coronary syndrome, aortic dissection, pulmonary embolism, pneumonia, gastroesophageal reflux disease and esophagitis as a possible cause of chest pain in this patient. This is a partial list of diagnoses considered. Disposition: Discharged. CLINICAL IMPRESSION Paresthesia INSTRUCTIONS (CBC w Diff: (NASIR: 08/28/2016 17:45) ( MsgRcvd 08/28/2016 18:21) Final results Test Result Flag (Reference) WHITE BLOOD COUNT 7.3 K/uL (4.5-11.5) RED BLOOD COUNT 5.94 H M/uL (4.50-5.90) HEMOGLOBIN 17.5 gm/dL (13.5-17.5) HEMATOCRIT 50.3 % (41.0-53.0) MEAN CELL VOLUME 85 fL (80-100) MEAN CORPUSCULAR HGB 30 pg (26-34) MEAN CORPUSCULAR HGB CONC 35 g/dL (31-37) RED CELL DISTRIBUTION WIDTH 13.4 % (11.6-14.8) PLATELET COUNT 239 K/uL (150-400) NEUTROPHIL % 73.2 % (50-75) LYMPH % 20.3 L % (25-40) MONO % 5.2 % (3-14) EOSINOPHIL % 1.0 % (0-4) BASOPHIL % 0.3 % (0-2)). (Electronically signed by Marjorie Gómez P.A.-C 08/28/2016 19:07)
--- NOTE | 2016-08-28 18:44 | ED NURSING NOTES ---
Clinical Report - Nurses [facility] [address] [place] [address] 08/28/2016 17:14 Patient: JIM DE LA GARZA TRIAGE Triage time 17:23. Acuity: LEVEL 4. Chief Complaint: (pt. states he had an episode today where his right side of his body felt "tingly and numb". This episode happened around 1630 today. Pt. denies symptoms at this time.). Alert. No acute distress. ( Pt. states he is also feeling tired and "light headed."). SEPSIS SCREEN: Sepsis Screen. Negative (no infection suspected/documented). MARIEL COMA SCORE: [facility] Coma Scale: 15- eyes open spontaneously (4); best verbal response- oriented x 4 (5); best motor response- obeys commands (6). --17:27 Marisa Jordan R.N. 17:23 08/28/16. BP: 153/83. HR: 88. RR: 16. O2 saturation: 100%. Temp: 98.6 F. Pain level now 0/10. --17:27 Marisa Jordan R.N. Weight: 86.1 kg stated. Height/Length: 72 inches Per Patient. BMI: 25.8. --17:24 Marisa Jordan R.N. Medications Losartan Potassium Oral. --17:26 Marisa Jordan R.N. Allergies Penicillin. --17:26 Marisa Jordan R.N. History Arrived by private vehicle. Historian: patient. Accompanied by spouse. Primary physician (Pedro Pablo Perdomo). This started today. 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 PAST MEDICAL HX: Immunizations: status is unknown. SOCIAL HX: Never smoker. Occasional alcohol use. No drug use. ABUSE ASSESSMENT: Abuse assessment: The patient was asked "Do you feel safe in your home?" and "Has anyone hurt you or threatened to hurt you?". No report of abuse. NUTRITIONAL RISK ASSESSMENT: The nutritional risk assessment revealed no deficiencies. FUNCTIONAL ASSESSMENT: Functional assessment: no impairments noted. LEARNING NEEDS ASSESSMENT: The learning needs assessment revealed no barriers. --17:27 Marisa Jordan R.N. PROBLEMS: Polycythemia. Dizziness. Hypertension. Atrial Fibrillation. --17:26 Marisa Jordan R.N. ADDITIONAL SURGERIES: Appendectomy. Sinus Surgery. Tonsillectomy. --17:26 Marisa Jordan R.N. Interventions ID band on patient. Ambulatory. --17:27 Marisa Jordan R.N. PHYSICAL ASSESSMENT Ambulatory to room. ( Fast exam negative.). GENERAL / NEURO / PSYCH: Alert. Appears in no acute distress. HEENT: No facial asymmetry noted. Mucous membranes are pink. CVS: Capillary refill less than 2 seconds. Pulses within normal limits. SKIN: Skin intact. Skin is warm and dry. --17:27 Marisa Jordan R.N. NURSING PROGRESS NOTES Patient gowned. Head of bed elevated. Two patient identifiers checked. Call light placed in reach. Side rails up x 2. Bed placed in lowest position. Brakes of bed on. --17:28 Marisa Jordan R.N. Patient ID band checked for patient name, birthdate and medical record number: patient confirmed. Blood samples drawn from the right antecubital space with Vacutainer 23g by nurse per protocol ; labeled in presence of the patient and sent to lab: jovany butcher. --17:45 Marisa Jordan R.N. EKG time: (1758). EKG was ordered, performed by a nurse and shown to the ED physician. --17:56 Marisa Jordan R.N. 18:29 08/28/16. BP: 138/75. HR: 75. RR: 16. O2 saturation: 99%. --18:30 Marisa Jordan R.N. DISPOSITION / DISCHARGE Condition at departure: stable. No learning barriers present. Discharge instructions provided and reviewed with the patient. Reviewed referral to family practice for followup. Patient verbalized understanding. Written instructions provided in Tuvaluan. The patient was discharged home and accompanied by flue tile press operator. He left the Emergency Department ambulatory and via private vehicle. Makeup Sales Consultant driving. Medication list reviewed and validated. --19:16 Marisa Jordan R.N. 19:16 08/28/16. BP: 140/80. HR: 68. RR: 16. O2 saturation: 100%. Temp: 98.6 F. Pain level now 0/10. --19:16 Marisa Jordan R.N. Departure time: 19:16. --19:16 Marisa Jordan R.N. Locked/Released at 08/28/2016 19:32 by Marisa Jordan R.N.
--- NOTE | 2016-08-28 18:44 | ED ORDER SUMMARY ---
..... Patient: JIM DE LA GARZA OrderSheet [facility] VisitID: [id number] [place] [address] 25y, M Registration Date/Time: 08/28/2016 ORDER SHEET Weight: 86.1 kg (stated) Allergies: Penicillin GENERAL ORDERS: CMP Urgent (17:38 08/28/2016 EKoroleva P.A.-C) (Ack 17:41 LNations ER Tech1) (17:44 SReitz R.N.) PT with INR Urgent (17:38 08/28/2016 EKoroleva P.A.-C) (Ack 17:41 LNations ER Tech1) (17:44 SReitz R.N.) PTT Urgent (17:38 08/28/2016 EKoroleva P.A.-C) (Ack 17:41 LNations ER Tech1) (17:44 SReitz R.N.) EKG - ER Stat (17:50 08/28/2016 EKoroleva P.A.-C) (Ack 17:56 LNations ER Tech1) (17:57 SReitz R.N.) CBC w Diff Urgent (18:13 08/28/2016 EKoroleva P.A.-C) (Ack 18:13 LNations ER Tech1) (19:08 SReitz R.N.) - (direct bili) (18:26 08/28/2016 EKoroleva P.A.-C) (Ack 18:27 LNations ER Tech1) (19:08 SReitz R.N.) MEDICATION ORDERS: IV FLUIDS: ORDER SHEET NOTES: [Electronically signed by Marjorie Gómez P.A.-C (19:07 08/28/2016)] [Electronically signed by Marisa Jordan R.N. (19:32 08/28/2016)] [Electronically locked/signed by Marisa Jordan R.N. (19:32 08/28/2016)]
--- NOTE | 2016-08-28 18:44 | ED NURSING NOTES ---
Clinical Report - Nurses [facility] [address] [place] [address] 08/28/2016 17:14 Patient: JIM DE LA GARZA TRIAGE Triage time 17:23. Acuity: LEVEL 4. Chief Complaint: (pt. states he had an episode today where his right side of his body felt "tingly and numb". This episode happened around 1630 today. Pt. denies symptoms at this time.). Alert. No acute distress. ( Pt. states he is also feeling tired and "light headed."). SEPSIS SCREEN: Sepsis Screen. Negative (no infection suspected/documented). MARIEL COMA SCORE: [place] Coma Scale: 15- eyes open spontaneously (4); best verbal response- oriented x 4 (5); best motor response- obeys commands (6). --17:27 Marisa Jordan R.N. 17:23 08/28/16. BP: 153/83. HR: 88. RR: 16. O2 saturation: 100%. Temp: 98.6 F. Pain level now 0/10. --17:27 Marisa Jordan R.N. Weight: 86.1 kg stated. Height/Length: 72 inches Per Patient. BMI: 25.8. --17:24 Marisa Jordan R.N. Medications Losartan Potassium Oral. --17:26 Marisa Jordan R.N. Allergies Penicillin. --17:26 Marisa Jordan R.N. History Arrived by private vehicle. Historian: patient. Accompanied by spouse. Primary physician (Pedro Pablo Perdomo). This started today. 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 PAST MEDICAL HX: Immunizations: status is unknown. SOCIAL HX: Never smoker. Occasional alcohol use. No drug use. ABUSE ASSESSMENT: Abuse assessment: The patient was asked "Do you feel safe in your home?" and "Has anyone hurt you or threatened to hurt you?". No report of abuse. NUTRITIONAL RISK ASSESSMENT: The nutritional risk assessment revealed no deficiencies. FUNCTIONAL ASSESSMENT: Functional assessment: no impairments noted. LEARNING NEEDS ASSESSMENT: The learning needs assessment revealed no barriers. --17:27 Marisa Jordan R.N. PROBLEMS: Polycythemia. Dizziness. Hypertension. Atrial Fibrillation. --17:26 Marisa Jordan R.N. ADDITIONAL SURGERIES: Appendectomy. Sinus Surgery. Tonsillectomy. --17:26 Marisa Jordan R.N. Interventions ID band on patient. Ambulatory. --17:27 Marisa Jordan R.N. PHYSICAL ASSESSMENT Ambulatory to room. ( Fast exam negative.). GENERAL / NEURO / PSYCH: Alert. Appears in no acute distress. HEENT: No facial asymmetry noted. Mucous membranes are pink. CVS: Capillary refill less than 2 seconds. Pulses within normal limits. SKIN: Skin intact. Skin is warm and dry. --17:27 Marisa Jordan R.N. NURSING PROGRESS NOTES Patient gowned. Head of bed elevated. Two patient identifiers checked. Call light placed in reach. Side rails up x 2. Bed placed in lowest position. Brakes of bed on. --17:28 Marisa Jordan R.N. Patient ID band checked for patient name, birthdate and medical record number: patient confirmed. Blood samples drawn from the right antecubital space with Vacutainer 23g by nurse per protocol ; labeled in presence of the patient and sent to lab: jovany butcher. --17:45 Marisa Jordan R.N. EKG time: (1758). EKG was ordered, performed by a nurse and shown to the ED physician. --17:56 Marisa Jordan R.N. 18:29 08/28/16. BP: 138/75. HR: 75. RR: 16. O2 saturation: 99%. --18:30 Marisa Jordan R.N. DISPOSITION / DISCHARGE Condition at departure: stable. No learning barriers present. Discharge instructions provided and reviewed with the patient. Reviewed referral to family practice for followup. Patient verbalized understanding. Written instructions provided in Tongan. The patient was discharged home and accompanied by sorting cows worker. He left the Emergency Department ambulatory and via private vehicle. Recycle Worker driving. Medication list reviewed and validated. --19:16 Marisa Jordan R.N. 19:16 08/28/16. BP: 140/80. HR: 68. RR: 16. O2 saturation: 100%. Temp: 98.6 F. Pain level now 0/10. --19:16 Marisa Jordan R.N. Departure time: 19:16. --19:16 Marisa Jordan R.N. Locked/Released at 08/28/2016 19:32 by Marisa Jordan R.N.
--- NOTE | 2016-08-28 18:44 | ED CLINICAL REPORT ---
Clinical Report - Physicians/Mid Levels [facility] [address] [place] [address] 08/28/2016 17:14 Patient: JIM DE LA GARZA Time Seen: 17:54 Mar 2016. Arrived- By private vehicle. Historian- patient. HISTORY OF PRESENT ILLNESS Chief Complaint: transient paresthesias to R. Side. This started just prior to arrival and is still present. (Patient reports paresthesia sensations to his hand feet, upper extremity over the last 2 years, that now have subsided. Recently seen in the emergency department, as well as his primary care doctor for similar episodes that about o'clock about 3-4 weeks. 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 REVIEW OF SYSTEMS No fever, cough, difficulty breathing, nausea or chills. No difficulty with urination or headache. No difficulty with ambulation. All systems otherwise negative, except as recorded above. PAST HISTORY Fam hx mother: PV grandparents: [place], afib,htn. Problems: Polycythemia. Dizziness. Hypertension. Atrial Fibrillation. Additional Surgeries: Appendectomy. Sinus Surgery. Tonsillectomy. Medications: Losartan Potassium Oral. Allergies: Penicillin. SOCIAL HISTORY Never smoker. Alcohol use. ADDITIONAL NOTES The nursing notes have been reviewed. PHYSICAL EXAM Vital Signs: 08/28/2016 17:23 BP: 153/83. HR: 88. RR: 16. O2 saturation: 100%. Temp: 98.6 F. Appearance: Alert. Eyes: Eyes normal inspection. ENT: Ears normal. Nose normal. Neck: Normal inspection. Neck supple. No carotid bruit or lymphadenopathy. CVS: Normal heart rate and rhythm. Heart sounds normal. Rhythm normal. No extra heart sounds. Respiratory: No respiratory distress. Breath sounds normal. No decreased air movement. Abdomen: No visible injury. Soft. Bowel sounds normal. No abdominal tenderness, rebound tenderness, distention or organomegaly. Neuro: Oriented X 3. No motor deficit. LABS, X-RAYS, AND EKG EKG: EKG time: (1753). No acute process. No acute ischemia. Normal EKG. Rate: 77. Normal P waves. Normal NATALIE. Normal QRS complex. Normal axis. Normal ST and T waves and QT. The study has been interpreted contemporaneously. The EKG appears to be a good tracing. Laboratory Tests: CBC w Diff: (NASIR: 08/28/2016 17:45) ( [facility] 08/28/2016 18:21) Final results Test Result Flag Units (Reference) WHITE BLOOD COUNT 7.3 K/uL (4.5-11.5) RED BLOOD COUNT 5.94 H M/uL (4.50-5.90) HEMOGLOBIN 17.5 gm/dL (13.5-17.5) HEMATOCRIT 50.3 % (41.0-53.0) MEAN CELL VOLUME 85 fL (80-100) MEAN CORPUSCULAR HGB 30 pg (26-34) MEAN CORPUSCULAR HGB CONC 35 g/dL (31-37) RED CELL DISTRIBUTION WIDTH 13.4 % (11.6-14.8) PLATELET COUNT 239 K/uL (150-400) NEUTROPHIL % 73.2 % (50-75) LYMPH % 20.3 L % (25-40) MONO % 5.2 % (3-14) EOSINOPHIL % 1.0 % (0-4) BASOPHIL % 0.3 % (0-2) PT with INR: (NASIR: 08/28/2016 17:45) ( [facility] 08/28/2016 18:00) Final results Test Result Flag Units (Reference) INR 1.0 (0.8-1.2) Low Intensity Therapy: INR 1.5-2.0 PT range 18.5-23.1Mod.Intensity Therapy: INR 2.0-3.0 PT range 23.1-31.5High Intensity Therapy: INR 2.5-3.5 PT range 27.4-35.5High Intensity Therapy 2: INR 3.0-4.0 PT range 31.5-39.3 APTT 27 SECONDS (24-34) CMP: (NASIR: 08/28/2016 17:39) ( [facility] 08/28/2016 18:47) Final results Test Result Flag Units (Reference) GLUCOSE 114 H mg/dL (70-110) BUN 14 mg/dL (7-18) CREATININE 1.0 mg/dL (0.6-1.3) Estimated GFR >60 mL/min Estimated GFR- >60 mL/min Note: Persistent reduction over 3 months in eGFR<60 mL/min/1.73 m2 defines CKD. Patients with eGFR values>=60 mL/min/1.73 m2 may also have CKD if evidence ofpersistent proteinuria. Additional information may be foundat www.kidney.org. SODIUM 139 mmol/L (136-145) POTASSIUM 3.6 mmol/L (3.5-5.1) CHLORIDE 103 mmol/L (98-107) CARBON DIOXIDE 28 mmol/L (21-32) CALCIUM 8.9 mg/dL (8.5-10.1) TOTAL PROTEIN 7.5 g/dL (6.4-8.2) ALBUMIN 4.4 g/dL (3.3-5.0) BILIRUBIN, TOTAL 3.1 H mg/dL (0.0-1.0) ALKALINE PHOSPHATASE 65 U/L (46-116) AST (SGOT) 15 U/L (15-37) ALT (SGPT) 31 U/L (12-78) BILIRUBIN, DIRECT 0.4 H mg/dL (0-0.3) . PROGRESS AND PROCEDURES Course of Care: Elevated bilirubin as noted previously, has stayed the same, patient has no abdominal pain. He would largely normalized labs, syrup for the bilirubin, which appears to be in direct, he has no abdominal pain, recent illness beyond a sinusitis type of illness. LFTs are otherwise unremarkable. Patient to follow up outpatient. At this time EKG unremarkable as well. PERC/ WELLS neg. 08/28/2016 18:29 BP: 138/75. HR: 75. RR: 16. O2 saturation: 99%. Patient is stable. Symptoms better. Patient/family counseled. Differential Diagnosis: I considered cochlear disease, labyrinthitis, perilymph fistula, acoustic schwannoma, brainstem TIA, brainstem CVA, multiple sclerosis and drug-related cause of central vertigo as a possible cause of dizziness in this patient. This is a partial list of diagnoses considered. I considered muscle strain, pleurisy, epidemic pleurodynia, intercostal neuritis, intermediate coronary syndrome, aortic dissection, pulmonary embolism, pneumonia, gastroesophageal reflux disease and esophagitis as a possible cause of chest pain in this patient. This is a partial list of diagnoses considered. Disposition: Discharged. CLINICAL IMPRESSION Paresthesia INSTRUCTIONS (CBC w Diff: (NASIR: 08/28/2016 17:45) ( MsgRcvd 08/28/2016 18:21) Final results Test Result Flag (Reference) WHITE BLOOD COUNT 7.3 K/uL (4.5-11.5) RED BLOOD COUNT 5.94 H M/uL (4.50-5.90) HEMOGLOBIN 17.5 gm/dL (13.5-17.5) HEMATOCRIT 50.3 % (41.0-53.0) MEAN CELL VOLUME 85 fL (80-100) MEAN CORPUSCULAR HGB 30 pg (26-34) MEAN CORPUSCULAR HGB CONC 35 g/dL (31-37) RED CELL DISTRIBUTION WIDTH 13.4 % (11.6-14.8) PLATELET COUNT 239 K/uL (150-400) NEUTROPHIL % 73.2 % (50-75) LYMPH % 20.3 L % (25-40) MONO % 5.2 % (3-14) EOSINOPHIL % 1.0 % (0-4) BASOPHIL % 0.3 % (0-2)). (Electronically signed by Marjorie Gómez P.A.-C 08/28/2016 19:07)
--- NOTE | 2016-08-28 18:44 | ED ORDER SUMMARY ---
..... Patient: JIM DE LA GARZA OrderSheet [facility] VisitID: [id number] [place] [address] 25y, M Registration Date/Time: 08/28/2016 ORDER SHEET Weight: 86.1 kg (stated) Allergies: Penicillin GENERAL ORDERS: CMP Urgent (17:38 08/28/2016 EKoroleva P.A.-C) (Ack 17:41 LNations ER Tech1) (17:44 SReitz R.N.) PT with INR Urgent (17:38 08/28/2016 EKoroleva P.A.-C) (Ack 17:41 LNations ER Tech1) (17:44 SReitz R.N.) PTT Urgent (17:38 08/28/2016 EKoroleva P.A.-C) (Ack 17:41 LNations ER Tech1) (17:44 SReitz R.N.) EKG - ER Stat (17:50 08/28/2016 EKoroleva P.A.-C) (Ack 17:56 LNations ER Tech1) (17:57 SReitz R.N.) CBC w Diff Urgent (18:13 08/28/2016 EKoroleva P.A.-C) (Ack 18:13 LNations ER Tech1) (19:08 SReitz R.N.) - (direct bili) (18:26 08/28/2016 EKoroleva P.A.-C) (Ack 18:27 LNations ER Tech1) (19:08 SReitz R.N.) MEDICATION ORDERS: IV FLUIDS: ORDER SHEET NOTES: [Electronically signed by Marjorie Gómez P.A.-C (19:07 08/28/2016)] [Electronically signed by Marisa Jordan R.N. (19:32 08/28/2016)] [Electronically locked/signed by Marisa Jordan R.N. (19:32 08/28/2016)]
--- NOTE | 2016-08-28 19:33 | ED MED RECONCILIATION SUMMARY ---
Patient: JIM DE LA GARZA Medication Reconciliation Report [facility] VisitID: [id number] [address] [place] [address] 25y, M Registration Date/Time: 08/28/2016 Weight: 86.1 kg Height/Length: 72 in. BMI: 25.8 ALLERGIES: Penicillin The patient's Home Medications are listed below: THE FOLLOWING MEDICATIONS NEED TO BE RECONCILED: Losartan Potassium Oral The source(s) of the original Home Medication information: Not obtained. The following Medications were given to the patient in the Emergency Department: None. The following Medications were prescribed to the patient: None.
--- NOTE | 2016-08-28 19:33 | ED MED RECONCILIATION SUMMARY ---
Patient: JIM DE LA GARZA Medication Reconciliation Report [facility] VisitID: [id number] [address] [place] [address] 25y, M Registration Date/Time: 08/28/2016 Weight: 86.1 kg Height/Length: 72 in. BMI: 25.8 ALLERGIES: Penicillin The patient's Home Medications are listed below: THE FOLLOWING MEDICATIONS NEED TO BE RECONCILED: Losartan Potassium Oral The source(s) of the original Home Medication information: Not obtained. The following Medications were given to the patient in the Emergency Department: None. The following Medications were prescribed to the patient: None.
--- NOTE | 2016-08-28 19:33 | ED DISCHARGE INSTRUCTIONS ---
Patient: JIM DE LA GARZA General Instructions [facility] VisitID: [id number] [place] [address] 25y, M Registration Date/Time: 08/28/2016 Paresthesia INSTRUCTIONS (CBC w Diff: (NASIR: 08/28/2016 17:45) ( MsgRcvd 08/28/2016 18:21) Final results Test Result Flag (Reference) WHITE BLOOD COUNT 7.3 K/uL (4.5-11.5) RED BLOOD COUNT 5.94 H M/uL (4.50-5.90) HEMOGLOBIN 17.5 gm/dL (13.5-17.5) HEMATOCRIT 50.3 % (41.0-53.0) MEAN CELL VOLUME 85 fL (80-100) MEAN CORPUSCULAR HGB 30 pg (26-34) MEAN CORPUSCULAR HGB CONC 35 g/dL (31-37) RED CELL DISTRIBUTION WIDTH 13.4 % (11.6-14.8) PLATELET COUNT 239 K/uL (150-400) NEUTROPHIL % 73.2 % (50-75) LYMPH % 20.3 L % (25-40) MONO % 5.2 % (3-14) EOSINOPHIL % 1.0 % (0-4) BASOPHIL % 0.3 % (0-2)). ADDITIONAL INFORMATION Paraesthesias Paraesthesia refers to a burning or prickling sensation that is sometimes felt in the hands, arms, legs or feet. It can also occur in other parts of the body. It can also feel like tingling or numbness, skin crawling or itching.The sensation is usually painless. Most people have experienced pins and needles. This feeling happens when legs have been crossed for too long and pressure is placed on a nerve. This is a temporary paraesthesia. It quickly goes away once the pressure is relieved. There are many possible causes for chronic paraesthesias. These include such disorders as stroke, herniated disk (pressing on a nerve), trapped nerve in the shoulder, elbow or wrist (such as carpal tunnel syndrome), vitamin deficiencies or even certain medicines. Laboratory tests are needed to make an accurate diagnosis. These tests may include blood tests, X-ray, CT (computerized tomography) scan or a muscle test (electromyography).Depending on the cause, treatment may include physical therapy. Home Care: Do not make any changes to your medicines without advice from your doctor. If vitamins have been prescribed, remember to take them daily at the recommended dose. Because of a decrease in feeling, a numb hand or foot may be more prone to injury. Take care to protect these areas from cuts, bumps, bruises, benitez or other injury. Keep your nails trimmed and wash your hands and feet often. Wear shoes that fit well to avoid pressure points, blisters and ulcers. Look at your hands and feet carefully (including the soles of your feet and between your toes) at least once a week and notify your doctor of any open wounds or signs of infection. Follow Up with your doctor or as advised by our staff. You may need further testing to determine the exact cause of your paraesthesia. [NOTE: If blood tests, X-ray, CT scan or electromyography were done, specialists will review them. You will be notified of any new findings that may affect your care.] Get Prompt Medical Attention if any of the following occur: Numbness or weakness of the face, one arm or one leg Slurred speech, confusion, trouble speaking, walking or seeing Severe headache, fainting spell, dizziness or seizure Chest, arm, neck or upper back pain Loss of bladder or bowel control Open wound with redness, swelling or pus You have been given the following additional information: Paraesthesias (Electronically signed by Marjorie Gómez P.A.-C 08/28/2016 19:07)
--- NOTE | 2016-08-28 19:33 | ED MAR SUMMARY ---
..... Medication Administration Record [facility] [address], [place] [id number] Patient: JIM DE LA GARZA Visit ID: [id number] 25y, M Weight: 86.1 kg Height/Length: 72 in BMI: 25.8 ALLERGIES: Penicillin
--- NOTE | 2016-08-28 19:33 | ED MAR SUMMARY ---
..... Medication Administration Record [facility] [address] [place], [place] [id number] Patient: JIM DE LA GARZA Visit ID: [id number] 25y, M Weight: 86.1 kg Height/Length: 72 in BMI: 25.8 ALLERGIES: Penicillin
== END 2016-08-28 19:18 | disposition home or self-care (01) ==
LOC: ED SRH 17:13
DX: R20.2 Paresthesia of skin (principal); I48.91 Unspecified atrial fibrillation; I10 Essential (primary) hypertension; Z88.0 Allergy status to penicillin
CPT/HCPCS: 90100; 90137; 94001; 94060; 95059